=== PATIENT | male | born 1980 | race Caucasian/White ===

== ENCOUNTER → 2022-08-07 17:02 | Outpatient (BNVA) | payer OTHER, SELFPAY | PROVIDERS: Family Provider Family Medicine; Visit Provider Nurse Practitioner Family | DX: J02.9 Acute pharyngitis, unspecified (principal) | CPT/HCPCS: 87880 ==

== ENCOUNTER → 2022-11-15 08:37 | Outpatient (BNVA) | payer OTHER, SELFPAY | PROVIDERS: Family Provider Family Medicine; PCP Family Medicine; Visit Provider Family Medicine | DX: R53.83 Other fatigue (principal); L40.50 Arthropathic psoriasis, unspecified; M25.50 Pain in unspecified joint | CPT/HCPCS: 80053; 80061; 83036; 85025; 86140; 86160; 86162; 86235; 86255; 86376 ==

== ENCOUNTER → 2023-04-20 10:27 | Outpatient (BNVA) | payer OTHER, SELFPAY | PROVIDERS: Family Provider Family Medicine; PCP Family Medicine; Referring Provider Family Medicine; Visit Provider Internal Medicine Rheumatology | DX: Z79.899 Other long term (current) drug therapy (principal); M19.90 Unspecified osteoarthritis, unspecified site; Z11.59 Encounter for screening for other viral diseases; Z11.1 Encounter for screening for respiratory tuberculosis; M45.6 Ankylosing spondylitis lumbar region | CPT/HCPCS: 36415; 73130; 73630; 80076; 82306; 82565; 85025; 86200; 86431; 86480; 86704; 86803; 86812; 87340 ==

== ENCOUNTER → 2023-08-10 13:01 | Outpatient (BNVA) | payer OTHER, SELFPAY | PROVIDERS: Family Provider Family Medicine; PCP Family Medicine; Visit Provider Internal Medicine Rheumatology | DX: L40.50 Arthropathic psoriasis, unspecified (principal); R53.83 Other fatigue; L40.0 Psoriasis vulgaris; I10 Essential (primary) hypertension | CPT/HCPCS: 36415; 80076; 82565; 85025; 86140 ==

== ENCOUNTER → 2023-11-30 11:13 | Outpatient (BNVA) | payer OTHER, SELFPAY | PROVIDERS: Family Provider Family Medicine; PCP Family Medicine; Visit Provider Internal Medicine Rheumatology | DX: L40.50 Arthropathic psoriasis, unspecified (principal); Z79.899 Other long term (current) drug therapy | CPT/HCPCS: 36415; 80076; 82565; 85025; 86140 ==

== ENCOUNTER → 2024-04-16 10:23 | Outpatient (BNVA) | payer OTHER, SELFPAY | PROVIDERS: Family Provider Family Medicine; PCP Family Medicine; Visit Provider Internal Medicine Rheumatology | DX: L40.50 Arthropathic psoriasis, unspecified (principal); Z79.899 Other long term (current) drug therapy | CPT/HCPCS: 36415; 80076; 82565; 85025; 85651; 86140 ==

== ENCOUNTER 2024-05-01 07:15 | Outpatient (CLI) | payer OTHER, SELFPAY ==
--- NOTE | 2024-05-01 07:15 | US_ITS ---
WS: [id number] RIGHT UPPER QUADRANT ULTRASOUND HISTORY: R79.89 - Other specified abnormal findings of blood chemi... COMPARISON: 02/06/2012 Liver: 19.4 cm in length. Moderately enlarged liver. Increased attenuation throughout the liver. The entire liver is not very well visualized. Loss of the normal portal triads. No mass. No bile duct dil atation. Portal Vein: Not well visualized. Gallbladder: Poorly visualized. Small stones cannot be excluded. There is no wall thickening. CBD: 0.4 cm Pancreas: Obscured. Right kidney: 13.3 cm in length. Normal size and echogenicity. Possible tiny cortical cyst lower pole . No hydronephrosis or mass. Aorta and IVC: Not visualized. No ascites. US/US liver [id number] IMPRESSION: 1. Extremely limited RIGHT upper quadrant ultrasound due to patient's body hab itus. 2. Advanced hepatic steatosis and moderate hepatomegaly. 3. Gallbladder is normally distended. Small stones would be difficult to exclu de.
== END 2024-05-01 07:20 | disposition home or self-care (01) ==
PROVIDERS: Family Provider Family Medicine; PCP Family Medicine; Visit Provider Internal Medicine Rheumatology
DX: R79.89 Other specified abnormal findings of blood chemistry (principal); K76.0 Fatty (change of) liver, not elsewhere classified; R16.0 Hepatomegaly, not elsewhere classified
CPT/HCPCS: 76705

== ENCOUNTER → 2024-08-20 10:38 | Outpatient (BNVA) | payer SELFPAY | PROVIDERS: Family Provider Family Medicine; PCP Family Medicine; Visit Provider Internal Medicine Rheumatology | DX: Z79.899 Other long term (current) drug therapy (principal); L40.50 Arthropathic psoriasis, unspecified | CPT/HCPCS: 36415; 80076; 82565; 85025; 85651; 86140 ==